=== PATIENT | female | born 1985 | race American Indian/Alaskan Native ===

== ENCOUNTER 2024-12-10 18:44 | Emergency (ER) | payer OTHER, SELFPAY ==
[2024-12-10 18:49] VITALS: BP 168/86; PULSE 73; RESP 16; TEMP 36.7; O2SAT 100; BMI 44.1
--- NOTE | 2024-12-11 00:31 | ED.WOUNDLAC ---
HPI - Wound/Laceration General Chief Complaint: Wound/Laceration Stated Complaint: cut on left ring finger Time Seen by Provider: 12/10/24 23:06 Source: patient Mode of arrival: Ambulatory History of Present Illness HPI narrative: 39-year-old female presents with left ring finger laceration after using knife to cut an avocado. Last tetanus was 4 years ago. She is able to move in all directions without any difficulty. Other than what is stated 14 point review of system is negative Related Data Allergies Allergy/AdvReac Type Severity Reaction Status Date / Time amoxicillin AdvReac Hives Verified 12/10/24 18:49 Review of Systems Review of Systems ROS Unobtainable: All systems reviewed & are unremarkable except as noted in HPI and below Patient History Social History Smoking Status: Never smoker Smoking Status: Never smoker Exam Narrative Exam Narrative: GENERAL: [39] year old patient appears stated age. Well-developed patient, in mild distress. HEAD: Atraumatic. Normocephalic. EYES: Pupils equal round and reactive. Extraocular motions intact. No scleral icterus. No injection or drainage. NECK: Trachea midline. Non tender EXTREMITIES: No edema or joint tenderness. BACK: Nontender without deformity or crepitance. No flank tenderness. NEURO: AOx3. SKIN: No rash or erythema of visible areas. L ring finger superifical MP medial side 0.5 x 0.5cm laceration motor/sensory intact +2 rad pulse cap refill <2secs. FROM of L Ring finger Initial Vital Signs Initial Vital Signs: Vital Signs Temperature 98.1 F 12/10/24 18:49 Pulse Rate 73 12/10/24 18:49 Respiratory Rate 16 12/10/24 18:49 Blood Pressure 168/86 H 12/10/24 18:49 Pulse Oximetry 100 12/10/24 18:49 Oxygen Delivery Method Room Air 12/10/24 18:49 Procedures Laceration Repair Laceration 1: Time of procedure: 00:35 Site: other (index finger) Side (If applicable): left Size (cm): 0.5 Description: linear Depth: simple, single layer Local Anesthetic: lidocaine 1% and with epi Amount of anesthesia used (mL): 3 Skin layer closed with: nylon Skin layer suture size: 5-0 Number of sutures: 4 Course Orders Ordered: Discontinued Medications Bacitracin (Bacitracin Oint 0.9 Gm Pckt) 1 applic TOP NOW ONE Stop: 12/11/24 00:31 Vital Signs Vital signs: Vital Signs - 8 hr 12/10/24 18:49 Temperature 98.1 F Pulse Rate 73 Respiratory Rate 16 Blood Pressure 168/86 H Pulse Oximetry 100 Oxygen Delivery Method Room Air MDM - Wound/Laceration MDM Narrative Medical decision making narrative: Four stitches placed single interrupted using 5 0 Ethicon 1 packet. Tetanus is already up-to-date from 2020. Bacitracin ointment and Tylenol, ibuprofen given here. Differential diagnosis includes simple versus deep laceration foreign body, and cellulitis. Patient will follow up with walk-in clinic urgent care for suture removal in 10-14 days she does not have a PCP. Discharge Plan Departure Patient Disposition: Home Clinical Impression: Finger laceration Qualifiers: Encounter type: initial encounter Finger: ring finger Damage to nail status: without damage Foreign body presence: without foreign body Laterality: left Qualified Code(s): S61.215A - Laceration without foreign body of left ring finger without damage to nail, initial encounter Instructions: DI for Laceration Repair Activity Restrictions/Additional Instructions: Return with new or worsening symptoms. Topical antibiotic daily x1 week. Suture removal in 10-14 days with walk-in clinic or urgent care. Stand Alone Forms: Patient Portal/API/Survey
[2024-12-11] MEDS: IBUPROFEN 400 MG TABLET 800 MG PO (00:37)
[2024-12-11] MEDS: ACETAMINOPHEN 325 MG TABLET 650 MG PO (00:37)
[2024-12-11] MEDS: BACITRACIN OINT 0.9 GM PCKT 1 APPLIC TOP (00:37)
[2024-12-11 00:45] VITALS: BP 157/79; PULSE 69; RESP 18; O2SAT 100
== END 2024-12-11 00:42 | disposition home or self-care (01) ==
PROVIDERS: Emergency Provider Family Medicine
DX: S61.215A Laceration without foreign body of left ring finger without damage to nail, initial encounter (principal); W26.0XXA Contact with knife, initial encounter
CPT/HCPCS: 12001; 99283

== ENCOUNTER 2025-02-18 13:12 | Emergency (ER) | payer OTHER, SELFPAY ==
[2025-02-18 13:49] VITALS: BP 181/86; PULSE 83; RESP 18; TEMP 37.3; O2SAT 99; BMI 42.5
--- NOTE | 2025-02-18 13:53 | DI.RAD.S_ITS ---
PROCEDURE: XR CHEST 1V INDICATIONS: cough TECHNIQUE: One view of the chest was acquired. COMPARISON: None. FINDINGS: Surgical changes and devices: None. Lungs and pleura: Lungs are clear. No pleural effusions or pneumothorax. Mediastinum: Mediastinal contours appear normal. Heart size is normal. Bones and chest wall: No suspicious bony lesions. Overlying soft tissues appear unremarkable. IMPRESSION: No acute cardiopulmonary pathology. Dictated by: Viral Jewell M.D. on 02/18/2025 at 14:16 Approved by: Viral Jewell M.D. on 02/18/2025 at 14:17
[2025-02-18 14:29] LABS: Strep Grp A by PCR Rapid Negative (Negative)
[2025-02-18 14:59] LABS: Influenza A - CEPHEID Flu A NEGATIVE (NEGATIVE); Influenza B - CEPHEID Flu B NEGATIVE (NEGATIVE)
[2025-02-18 15:00] LABS: COVID-19 CEPHEID 4-PLEX PCR Negative (Negative)
[2025-02-18 17:52] VITALS: BP 168/76; PULSE 82; RESP 18; TEMP 36.9; O2SAT 98
--- NOTE | 2025-02-19 18:07 | ED.URI ---
HPI - URI/Sore Throat General Chief Complaint: Upper Respiratory Symptoms Stated Complaint: fever, tired, cough Time Seen by Provider: 02/18/25 15:39 Source: patient Mode of arrival: Ambulatory History of Present Illness HPI Narrative: 39-year-old female presents to the ED with URI symptoms including cough, fatigue, sore throat, voice changes, fever for 4 days. No chest pain, shortness of breath, lightheadedness, dizziness, syncope, nausea, vomiting, abdominal pain. Related Data Allergies Allergy/AdvReac Type Severity Reaction Status Date / Time amoxicillin AdvReac Hives Verified 02/18/25 13:49 Review of Systems Review of Systems ROS Unobtainable: Unobtainable due to medical condition Constitutional Constitutional: Denies chills, Reports fatigue, Reports fever(s), Denies frequent falls, Denies lethargy and Denies weakness Eyes Eyes: Denies change in vision, Denies eye discharge, Denies irritation and Denies loss of vision ENT Ears, Nose, Mouth, and Throat: Denies change in voice, Denies dizziness, Denies neck pain, Reports sore throat and Denies throat swelling Cardiovascular Cardiovascular: Denies chest pain, Denies irregular heart rhythm, Denies lightheadedness, Denies palpitations, Denies dyspnea, Denies dyspnea on exertion and Denies orthopnea Respiratory Respiratory: Reports cough, Denies dyspnea, Denies dyspnea on exertion and Denies wheezing Gastrointestinal Gastrointestinal: Denies abdominal pain, Denies change in bowel habits, Denies diarrhea, Denies nausea and Denies vomiting Musculoskeletal Musculoskeletal: Denies neck pain and Denies numbness Integumentary/Breasts Skin/Breast: Denies pruritus, Denies erythema, Denies rash and Denies wounds Neurologic Neurologic: Denies behavioral changes, Denies confusion, Denies dizziness, Denies frequent falls, Denies loss of vision, Denies numbness and Denies weakness Psychiatric Psychiatric: Denies anxiety, Denies behavioral changes, Denies confusion, Denies depression, Denies homicidal ideation and Denies suicidal ideation Endocrine Endocrine: Reports fatigue, Denies flushing and Denies palpitations Hematologic/Lymphatic Hematologic/Lymphatic: Denies easy bruising Allergic/Immunologic Allergic/Immunologic: Denies urticaria, Denies throat swelling and Denies wheezing Patient History Social History Smoking Status: Never smoker Smoking Status: Never smoker Exam Narrative Exam Narrative: Const General:?cooperative, healthy appearing and comfortable [facility] Head:?normal to inspection Ears:?hearing grossly normal bilaterally Nose:?external nose normal Face and sinus:?normal facial exam and sinuses nontender Mouth:?oral mucosae normal Throat:?posterior oropharynx normal Eyes General:?appearance normal, both eyes and all related structures Neck Neck:?normal visual inspection and no lymphadenopathy noted Resp Effort & Inspection:?normal respiratory effort Auscultation:?clear to auscultation bilaterally Cardio Rate:?regular rate Rhythm:?regular rhythm Neuro General:?patient alert, patient awake and patient oriented x3 Initial Vital Signs Initial Vital Signs: Vital Signs Temperature 99.2 F 02/18/25 13:49 Pulse Rate 83 02/18/25 13:49 Respiratory Rate 18 02/18/25 13:49 Blood Pressure 181/86 H 02/18/25 13:49 Pulse Oximetry 99 02/18/25 13:49 Oxygen Delivery Method Room Air 02/18/25 13:49 MDM - URI/Sore Throat Lab Data Labs: Lab Results 02/18/25 Range/Units 13:58 SARS-CoV-2 (PCR) Negative (Negative) Influenza A (RT-PCR) Flu a negative (NEGATIVE) Influenza B (RT-PCR) Flu b negative (NEGATIVE) RSV (PCR) Negative (Negative) Group A Strep (PCR) Negative (Negative) MDM Narrative Medical decision making narrative: 39-year-old female presents to the ED with URI symptoms including cough, fatigue, sore throat, voice changes, fever for 4 days. Strep POC is negative. Respiratory panel negative for COVID-19, influenza, RSV. Chest x-ray without acute cardiopulmonary pathology. Discussed findings with patient that she has a unspecified viral upper respiratory infection that is causing her symptoms. Recommend supportive care with [id number] cough/cold medications, Tylenol, ibuprofen. ED return precautions were discussed with patient. Patient verbalized understanding. Medical records reviewed: Yes Discharge Plan Departure Patient Disposition: Home Clinical Impression: Upper respiratory infection Instructions: DI for Viral Upper Respiratory Infection -- Adult Activity Restrictions/Additional Instructions: You were evaluated in the ED today for a cough and sore throat. You tested negative for strep throat, COVID-19, influenza, RSV. Your chest x-ray was also normal. It appears that you have a viral upper respiratory infection which is causing your symptoms. You may take Tylenol, ibuprofen, [id number] cough and cold remedies for relief. Return to the ED if you have chest pain, shortness of breath, worsening symptoms. Stand Alone Forms: Patient Portal/API
== END 2025-02-18 17:53 | disposition home or self-care (01) ==
PROVIDERS: Family Medicine; Emergency Provider Student in an Organized Health Care Education/Training Program
DX: J06.9 Acute upper respiratory infection, unspecified (principal)
CPT/HCPCS: 71045; 87637; 87651; 99281; 99283